=== PATIENT | male | born 1970 | race Caucasian/White ===

== ENCOUNTER 2017-06-22 12:18 | Emergency (ER) | payer OTHER ==
[~2017-06-22] VITALS: Ht 177.8 cm; Wt 119.8 kg
[~2017-06-22 12:18] MED LIST: Flomax0.4 MG PO; HYDMOR2 PO; KETO10 PO; METF500 PO; Norco 5-325 Ta1 EACH PO; PRAV20 PO; PROM25 PO
[2017-06-22] MEDS ORDERED: TESTOSTERONE (12:55)
[2017-06-22] MEDS ORDERED: ESTROGEN (12:56)
[2017-06-22] MEDS ORDERED: Percocet 5-3251 EACH PO (14:11)
[2017-06-22] MEDS ORDERED: IBUP400 PO (14:11)
== END 2017-06-22 14:38 | disposition home or self-care (01) ==
LOC: ER 12:18
DX: S42.021A Displaced fracture of shaft of right clavicle, initial encounter for closed fracture (principal); S20.211A Contusion of right front wall of thorax, initial encounter; S80.211A Abrasion, right knee, initial encounter; S00.01XA Abrasion of scalp, initial encounter; V29.9XXA Motorcycle rider (driver) (passenger) injured in unspecified traffic accident, initial encounter; Z88.5 Allergy status to narcotic agent; Z79.899 Other long term (current) drug therapy; Z79.84 Long term (current) use of oral hypoglycemic drugs; E11.9 Type 2 diabetes mellitus without complications; I10 Essential (primary) hypertension; E66.9 Obesity, unspecified; Z87.891 Personal history of nicotine dependence
CPT/HCPCS: 36415; 71046; 73000; 90471; 90714; 96374; 96375; 96376; 99284; J2405; J3010

== ENCOUNTER 2019-07-24 09:04 | Day surgery (SDC) | payer OTHER ==
[~2019-07-24] VITALS: Ht 177.8 cm; Wt 129.7 kg
[~2019-07-24 09:04] MED LIST changes: +ESTROGEN; +IBUP400 PO; +Percocet 5-3251 EACH PO; +TESTOSTERONE
--- NOTE | 2019-07-24 10:09 | NUR ---
07/24/19 Neva Foote 1ST ATTEMPT AT IV WAS UNSUCCESSFUL, DID NOT ACCESS VEIN. ORSC.NSC ATTEMPTED 2 IV INTO THE RIGHT FOREARM, UNSUCCESSFUL. ORSC.FLL WAS ABLE TO ACCESS IV ON RIGHT FOREARM. TMG
== END 2019-07-24 13:37 | disposition home or self-care (01) ==
LOC: ORSCSDS 09:04
PROVIDERS: Orthopaedic Surgery
PROC: 0LQ24ZZ Repair Left Shoulder Tendon, Percutaneous Endoscopic Approach (ICD-10-PCS; principal; 2019-07-24 10:30)
PROC: 0RNK4ZZ Release Left Shoulder Joint, Percutaneous Endoscopic Approach (ICD-10-PCS; principal; 2019-07-24 10:30)
DX: M75.112 Incomplete rotator cuff tear or rupture of left shoulder, not specified as traumatic (principal); M75.22 Bicipital tendinitis, left shoulder; M75.52 Bursitis of left shoulder; M75.42 Impingement syndrome of left shoulder; I10 Essential (primary) hypertension; E78.5 Hyperlipidemia, unspecified; G47.33 Obstructive sleep apnea (adult) (pediatric); E11.9 Type 2 diabetes mellitus without complications; Z79.84 Long term (current) use of oral hypoglycemic drugs; E66.01 Morbid (severe) obesity due to excess calories; Z68.41 Body mass index [BMI] 40.0-44.9, adult
CPT/HCPCS: 82947; C1713; J0171; J0690; J1100; J2250; J2370; J2405; J2704; J3010; J7120

== ENCOUNTER → 2019-08-21 | Outpatient (CLI) | payer OTHER | END | disposition home or self-care (01) | LOC: PLD 12:01 → LAB SHORT 12:01 | DX: L30.8 Other specified dermatitis (principal) | CPT/HCPCS: 88305; 88312 ==

== ENCOUNTER 2022-09-26 16:23 | Observation (INO) | payer OTHER ==
[~2022-09-26] VITALS: Ht 177.8 cm; Wt 117.9 kg
[2022-09-26 17:44] LABS: BASOPHILS ABSOLUTE AUTO 0.05 K/mm3 (0.00-0.23); BASOPHILS PERCENT AUTO 1 % (0-2); EOSINOPHILS ABSOLUTE AUTO 0.19 K/mm3 (0.00-0.68); EOSINOPHILS PERCENT AUTO 2 % (0-6); Hematocrit 51.7 % (37.0-53.0); Hemoglobin 17.5 g/dL (13.5-17.5); IMMATURE GRAN ABSOLUTE AUTO 0.06 K/mm3 (0.00-0.10); IMMATURE GRAN PERCENT AUTO 1 % (0-1); LYMPHOCYTES PERCENT AUTO 15 % (21-46); MONOCYTES ABSOLUTE AUTO 0.87 K/mm3 (0.16-1.47); MONOCYTES PERCENT AUTO 11 % (4-13); Mean Corpuscular HGB 30.8 pg (26.0-34.0); Mean Corpuscular HGB Conc 33.8 g/dL (31.5-36.5); Mean Corpuscular Volume 91 fL (80-100); Mean Platelet Volume 11.2 fL (9.1-12.4); NEUTROPHILS ABSOLUTE AUTO 5.65 K/mm3 (1.96-9.15); NEUTROPHILS PERCENT AUTO 71 % (41-73); Platelet Count 221 K/mm3 (150-400); RDW Coefficient Variation 13.3 % (11.7-14.2); RDW Standard Deviation 44.2 fL (35.1-46.3); Red Blood Cell Count 5.68 M/mm3 (4.30-5.90); White Blood Cell Count 8.02 K/mm3 (4.00-11.30)
[2022-09-26 18:02] LABS: Albumin, Blood 3.7 g/dL (3.4-5.0); Albumin/Globulin Ratio 1.1 (0.8-1.8); Bilirubin, Total 0.4 mg/dL (0.1-1.0); Bun/Creatinine Ratio 16.8 (12.0-20.0); Calcium, Blood 8.6 mg/dL (8.5-10.1); Creatinine, Blood 0.83 mg/dL (0.60-1.20); Globulin, Blood 3.4 g/dL (2.2-4.0); Total Protein, Blood 7.1 g/dL (6.4-8.2)
[2022-09-26] MEDS ORDERED: LEVSOD75 PO (21:05)
[2022-09-26] MEDS ORDERED: DEPO-TESTO200 MG/16 IM (21:07)
[2022-09-26 21:39] VITALS: BP 146/93
--- NOTE | 2022-09-27 04:26 | NUR ---
SHIFT SUMMARY ER ADMIT. PATIENT SETTLED INTO ROOM. DENIES PAIN, NAUSEA, AND SHORTNESS OF BREATH. UP INDEPENDENT IN ROOM. NO SIGNS OF NEUROLOGICAL DEFICIT. MRI SCREENING FORM FAXED TO IMAGING. ECHO ORDERED. AT BEDSIDE.
[2022-09-27 04:45] VITALS: BP 147/97
[2022-09-27 05:32] LABS: Thyroid Stimulating Hormone 2.43 uIU/mL (0.360-4.800)
[2022-09-27 07:48] VITALS: BP 157/103
[2022-09-27 12:19] LABS: CHOL/HDL RATIO 2.8; Cholesterol 147 mg/dL (50-200); HDL Cholesterol 52 mg/dL (>39); LDL/HDL RATIO 1.7; Low Density Lipoprotein Chol 88 mg/dL (0-110); Triglycerides 34 mg/dL (30-160); Very Low Density Lipoprot Chol 6 mg/dL (6-32)
[2022-09-27 15:36] VITALS: BP 156/93
--- NOTE | 2022-09-27 16:56 | NUR ---
SHIFT SUMMARY PATIENT A&OX4, COOPERATIVE WITH CARE. MRI AND RLE US DONE. PT WAITING FOR ECHO AND THEN FOR DISCHARGE. NO ACUTE CHANGES DURING THIS SHIFT. DENIES HEADACHE, SOB, CP, OR DIZZINESS. SOURCES OF IGNITIONS ASSESSED FOR DURING HOURLY ROUNDING. PATIENT IS ACCOMPANIED BY SO. CURRENTLY RESTING IN BED, WATCHING TV. CALL LIGHT WITHIN REACH.
[2022-09-27 19:16] VITALS: BP 160/105
[2022-09-27 21:22] VITALS: BP 161/84
--- NOTE | 2022-09-28 02:59 | NUR ---
A/O PT CONCERNED ABOUT ELEVATED BP WILL RECHECK ONCE PT IS LAYING QUIETLY IN BED. 2100 BP STILL ELEVATED SO WAS NOTIFIED AND COZAAR TO START TOMORROW WAS GIVEN THIS EVENING. WILL CONT MONITORING. PT UP IN SHOWER. 0100 MEDICAL LABORATORY TECHNOLOGIST CALL PT HEART RATE DROPPED BRIEFLY INTO THE 30S BUT IS NOW IN THE 50S AND 60S.
[2022-09-28 04:25] VITALS: BP 150/86
[2022-09-28 05:08] LABS: BASOPHILS ABSOLUTE AUTO 0.05 K/mm3 (0.00-0.23); BASOPHILS PERCENT AUTO 1 % (0-2); EOSINOPHILS ABSOLUTE AUTO 0.54 K/mm3 (0.00-0.68); EOSINOPHILS PERCENT AUTO 6 % (0-6); Hematocrit 51.5 % (37.0-53.0); Hemoglobin 17.1 g/dL (13.5-17.5); IMMATURE GRAN ABSOLUTE AUTO 0.05 K/mm3 (0.00-0.10); IMMATURE GRAN PERCENT AUTO 1 % (0-1); LYMPHOCYTES PERCENT AUTO 24 % (21-46); MONOCYTES ABSOLUTE AUTO 1.08 K/mm3 (0.16-1.47); MONOCYTES PERCENT AUTO 12 % (4-13); Mean Corpuscular HGB 30.4 pg (26.0-34.0); Mean Corpuscular HGB Conc 33.2 g/dL (31.5-36.5); Mean Corpuscular Volume 92 fL (80-100); Mean Platelet Volume 11.3 fL (9.1-12.4); NEUTROPHILS ABSOLUTE AUTO 5.39 K/mm3 (1.96-9.15); NEUTROPHILS PERCENT AUTO 58 % (41-73); Platelet Count 196 K/mm3 (150-400); RDW Coefficient Variation 13.2 % (11.7-14.2); RDW Standard Deviation 44.5 fL (35.1-46.3); Red Blood Cell Count 5.62 M/mm3 (4.30-5.90); White Blood Cell Count 9.31 K/mm3 (4.00-11.30)
[2022-09-28 05:43] LABS: Albumin, Blood 3.3 g/dL (3.4-5.0); Bilirubin, Total 0.6 mg/dL (0.1-1.0); Bun/Creatinine Ratio 14.2 (12.0-20.0); Calcium, Blood 8.6 mg/dL (8.5-10.1); Creatinine, Blood 0.85 mg/dL (0.60-1.20); Globulin, Blood 3.2 g/dL (2.2-4.0); Potassium, Blood 4.3 mmol/L (3.5-5.5); Total Protein, Blood 6.5 g/dL (6.4-8.2)
[2022-09-28 08:15] VITALS: BP 162/106
[2022-09-28] MEDS ORDERED: Aspir 8181 MG PO (18:13)
[2022-09-28] MEDS ORDERED: LOSA50 PO (18:13)
[2022-09-28] MEDS ORDERED: ELIQUIS5 M2 PO (18:13)
[2022-09-28] MEDS ORDERED: ATORVASTATIN CA40 MG PO (18:13)
--- NOTE | 2022-09-28 18:40 | NUR ---
DISCHARGE NO ACUTE EVENTS T/O SHIFT. ASSESSED FOR SOURCES OF IGNITION DURING HOURLY ROUDNING. PATIENT HAD AN ECHO AND CAROTID US DONE. DISCHARGE PACKET REVIEWED WITH MIKE EMANUEL. NO QUESTIONS OR CONCERNS REPORTED. PATIENT DISHCARGED AT 1840.
== END 2022-09-28 18:40 | disposition home or self-care (01) ==
LOC: ER 16:23 → PCU 18:50 → MEDS 19:30
PROVIDERS: Student in an Organized Health Care Education/Training Program; ADMIT Internal Medicine
DX: G45.9 Transient cerebral ischemic attack, unspecified (principal); I48.91 Unspecified atrial fibrillation; I10 Essential (primary) hypertension; E11.9 Type 2 diabetes mellitus without complications; E03.9 Hypothyroidism, unspecified; G47.30 Sleep apnea, unspecified; Z88.5 Allergy status to narcotic agent
CPT/HCPCS: 36415; 70450; 70551; 76882; 80053; 80061; 82947; 83036; 83718; 84443; 85025; 93005; 93010; 93880; 94660; 94760; 94762; 99285-25; A9270; C8929; G0378; Q9957